=== PATIENT | male | born 1985 | race Caucasian/White ===

== ENCOUNTER 2020-10-08 15:01 | Emergency (ER) | payer OTHER ==
[2020-10-08] MEDS ORDERED: Sodium Chloride 0.9% 1,000 ML IV STA (16:24)
[2020-10-08] MEDS ORDERED: Ondansetron 4 MG/2 ML SDV IVPUSH ONE (16:24)
[2020-10-08] MEDS: Sodium Chloride 0.9% 10 ML Syringe FLUSH PRN ×2 (16:49→17:52)
[2020-10-08] MEDS ORDERED: Iopamidol 612 MG/ML 100 ML Bottle IVPUSH ONE (17:30)
[2020-10-08] MEDS ORDERED: Diatrizoate Meglumine/Diatrizoate Sodium 37% 120 ML Bottle PO ONE (17:30)
[2020-10-08] MEDS ORDERED: Iopamidol 612 MG/ML 50 ML SDV IVPUSH ONE (17:30)
--- NOTE | 2020-10-08 18:17 | CT ---
CT abdomen and pelvis Technique: Multiple axial sections were obtained from above the dome of the diaphragm inferiorly through the pubic symphysis. Intravenous and oral contrast were utilized. Delayed images were also obtained of the bladder. Reconstructed coronal and sagittal images were obtained. Comparison: No prior CT abdomen or pelvis studies are available. Findings: Visualized lung bases show nothing acute. Liver shows a very minimal low density finding within the dome of the right lobe measuring 5 mm which is most likely due to a small cyst. Liver shows no other focal abnormality. Gallbladder contains no calcified gallstones. Spleen size is normal. There is a very minimal amount of accessory splenic tissue medial to the spleen. Adrenal glands show no nodule. Pancreas appears within normal limits. Kidneys show contrast enhancement with no hydronephrosis or mass. Delayed images show contrast within the distal ureters and within the bladder. Abdominal aorta shows no aneurysm. No retroperitoneal adenopathy or mesenteric abnormalities are seen. Small fat-containing umbilical hernia is noted. Appendix is seen which is normal. No pelvic mass or adenopathy is appreciated. No inflammatory change or free fluid is seen. Mild increased stool is seen throughout the colon. Bone window settings were reviewed. Spondylitic defects are seen at L5-S1. Very minimal spondylolisthesis by 1 or 2 mm is noted at L5-S1. No other acute osseous abnormality is appreciated. Impression: 1. Mild increased stool throughout the colon presumably due to mild constipation. 2. Spondylitic defects at L5-S1 with minimal spondylolisthesis. 3. Other incidental findings as noted above. Nothing acute is seen. Diagnostic code #2
--- NOTE | 2020-10-08 18:45 | EDM.PDOC ---
ED HPI GENERAL MEDICAL PROBLEM - General Chief Complaint: Abdominal Pain Stated Complaint: ABD PAIN Time Seen by Provider: 10/08/20 15:39 Source of Information: Reports: Patient, Family, RN Notes Reviewed History Limitations: Reports: No Limitations - History of Present Illness INITIAL COMMENTS - FREE TEXT/NARRATIVE: Patient is a 34-year-old male presenting to the emergency department with complaints of right lower quadrant abdominal pain. Symptoms began around 830 this morning and have been progressively worsening throughout the course the day. He reports it is now painful for him to walk. He does feel nauseous but has had no vomiting. Denies any diarrhea. States he had a normal bowel movement this morning and the pain started shortly thereafter. He has been feel ing ill for the majority of the weekend. He had a known Covid exposure on Friday of last week. On Friday he developed sore throat, cough, headache, and generalized body aches. He was tested for Covid and was found to be negative. Reports that still has a cough but his sore throat resolved. Headache is finally resolved this morning. Patient denies any chronic medical conditions. 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 [No Known Home Meds] 10/08/20 [History] Past Medical History - Infectious Disease History Infectious Disease History: Reports: None - Past Surgical History HEENT Surgical History: Reports: Adenoidectomy, Tonsillectomy Social & Family History - Tobacco Use Tobacco Use Status *Q: Never Tobacco User - Caffeine Use Caffeine Use: Reports: Coffee, Soda - Recreational Drug Use Recreational Drug Use: No ED ROS GENERAL - Review of Systems Review Of Systems: Comprehensive ROS is negative, except as noted in HPI. ED EXAM, GI/ABD - Physical Exam Exam: See Below Exam Limited By: No Limitations General Appearance: Alert, WD/WN, No Apparent Distress Respiratory/Chest: No Respiratory Distress, Lungs Clear, Normal Breath Sounds, No Accessory Muscle Use, Chest Non-Tender Cardiovascular: Normal Peripheral Pulses, Regular Rate, Rhythm, No Edema, No Gallop, No JVD, No Murmur, No Rub GI/Abdominal Exam: Normal Bowel Sounds, Soft, No Organomegaly, No Distention, No Abnormal Bruit, No Mass, Pelvis Stable, Tender (RLQ tenderness) Neurological: Alert, Oriented, CN II-XII Intact, Normal Cognition, Normal Gait, Normal Reflexes, No Motor/Sensory Deficits Psychiatric: Normal Affect, Normal Mood Skin Exam: Warm ( ), Dry, Intact, Normal Color, No Rash Course - Vital Signs Last Recorded V/S: Last Vital Signs Temp 98.0 F 10/08/20 15:48 Pulse 72 10/08/20 15:48 Resp 20 10/08/20 15:48 BP 123/91 H 10/08/20 15:48 Pulse Ox 96 10/08/20 15:48 - Orders/Labs/Meds Orders: Active Orders 24 hr Category Date Time Status Peripheral IV Care [RC] . DIRECTED Care 10/08/20 16:24 Active Sodium Chloride 0.9% [Normal Saline] 1,000 ml Med 10/08/20 16:24 Active IV NOW Sodium Chloride 0.9% [Saline Flush] Med 10/08/20 16:24 Active 10 ml FLUSH ASDIRECTED PRN Peripheral IV Insertion Adult [OM.PC] Stat Oth 10/08/20 16:23 Ordered Medication Orders Sodium Chloride (Normal Saline) 1,000 mls @ 150 mls/hr IV NOW STA Stop: 10/08/20 23:03 Last Admin: 10/08/20 16:49 Dose: 150 mls/hr Documented by: BREONNA Sodium Chloride (Sodium Chloride 0.9% 10 Ml Syringe) 10 ml FLUSH ASDIRECTED PRN PRN Reason: Keep Vein Open Last Admin: 10/08/20 17:52 Dose: 10 ml Documented by: Admin: 10/08/20 16:49 Dose: 10 ml Documented by: BREONNA Labs: Laboratory Tests 10/08/20 10/08/20 10/08/20 Range/Units 16:42 16:42 16:42 WBC 4.56 (4.23-9.07) K/mm3 RBC 5.55 (4.63-6.08) M/mm3 Hgb 16.7 (13.7-17.5) gm/dl Hct 49.3 (40.1-51.0) % MCV 88.8 (79.0-92.2) fl MCH 30.1 (25.7-32.2) pg MCHC 33.9 (32.2-35.5) g/dl RDW Std Deviation 43.0 (35.1-43.9) fL Plt Count 151 L (163-337) K/mm3 MPV 10.8 (9.4-12.3) fl Neut % (Auto) 41.1 (34.0-67.9) % Lymph % (Auto) 34.4 (21.8-53.1) % Leake % (Auto) 23.7 H (5.3-12.2) % Eos % (Auto) 0.4 L (0.8-7.0) Baso % (Auto) 0.2 (0.1-1.2) % Neut # (Auto) 1.87 (1.78-5.38) K/mm3 Lymph # (Auto) 1.57 (1.32-3.57) K/mm3 Leake # (Auto) 1.08 H (0.30-0.82) K/mm3 Eos # (Auto) 0.02 L (0.04-0.54) K/mm3 Baso # (Auto) 0.01 (0.01-0.08) K/mm3 Manual Slide Review Abnormal smear Sodium 141 (136-145) mEq/L Potassium 3.8 (3.5-5.1) mEq/L Chloride 105 (98-107) mEq/L Carbon Dioxide 28 (21-32) mEq/L Anion Gap 11.8 (5-15) BUN 16 (7-18) mg/dL Creatinine 1.2 (0.7-1.3) mg/dL Est Cr Clr Drug Dosing 82.33 mL/min Estimated GFR (MDRD) > 60 (>60) mL/min BUN/Creatinine Ratio 13.3 L (14-18) Glucose 84 (70-99) mg/dL Calcium 8.6 (8.5-10.1) mg/dL Total Bilirubin 0.7 (0.2-1.0) mg/dL AST 22 (15-37) U/L ALT 39 (16-63) U/L Alkaline Phosphatase 75 (46-116) U/L C-Reactive Protein 1.8 H* (<1.0) mg/dL Total Protein 7.4 (6.4-8.2) g/dl Albumin 3.7 (3.4-5.0) g/dl Globulin 3.7 gm/dL Albumin/Globulin Ratio 1.0 (1-2) Urine Color (Yellow) Urine Appearance (Clear) Urine pH (5.0-8.0) Ur Specific [place] (1.005-1.030) Urine Protein (Negative) Urine Glucose (UA) (Negative) Urine Ketones (Negative) Urine Occult Blood (Negative) Urine Nitrite (Negative) Urine Bilirubin (Negative) Urine Urobilinogen (0.2-1.0) Ur Leukocyte Esterase (Negative) Urine RBC (0-5) /hpf Urine WBC (0-5) /hpf Ur Epithelial Cells (0-5) /hpf Urine Bacteria (FEW) /hpf Urine Mucus (FEW) /hpf SARS-CoV-2 RNA (AL) Positive H (NEGATIVE) 10/08/20 Range/Units 18:08 WBC (4.23-9.07) K/mm3 RBC (4.63-6.08) M/mm3 Hgb (13.7-17.5) gm/dl Hct (40.1-51.0) % MCV (79.0-92.2) fl MCH (25.7-32.2) pg MCHC (32.2-35.5) g/dl RDW Std Deviation (35.1-43.9) fL Plt Count (163-337) K/mm3 MPV (9.4-12.3) fl Neut % (Auto) (34.0-67.9) % Lymph % (Auto) (21.8-53.1) % Leake % (Auto) (5.3-12.2) % Eos % (Auto) (0.8-7.0) Baso % (Auto) (0.1-1.2) % Neut # (Auto) (1.78-5.38) K/mm3 Lymph # (Auto) (1.32-3.57) K/mm3 Leake # (Auto) (0.30-0.82) K/mm3 Eos # (Auto) (0.04-0.54) K/mm3 Baso # (Auto) (0.01-0.08) K/mm3 Manual Slide Review Sodium (136-145) mEq/L Potassium (3.5-5.1) mEq/L Chloride (98-107) mEq/L Carbon Dioxide (21-32) mEq/L Anion Gap (5-15) BUN (7-18) mg/dL Creatinine (0.7-1.3) mg/dL Est Cr Clr Drug Dosing mL/min Estimated GFR (MDRD) (>60) mL/min BUN/Creatinine Ratio (14-18) Glucose (70-99) mg/dL Calcium (8.5-10.1) mg/dL Total Bilirubin (0.2-1.0) mg/dL AST (15-37) U/L ALT (16-63) U/L Alkaline Phosphatase (46-116) U/L C-Reactive Protein (<1.0) mg/dL Total Protein (6.4-8.2) g/dl Albumin (3.4-5.0) g/dl Globulin gm/dL Albumin/Globulin Ratio (1-2) Urine Color Yellow (Yellow) Urine Appearance Clear (Clear) Urine pH 6.0 (5.0-8.0) Ur Specific [place] 1.015 (1.005-1.030) Urine Protein Negative (Negative) Urine Glucose (UA) Negative (Negative) Urine Ketones Negative (Negative) Urine Occult Blood Negative (Negative) Urine Nitrite Negative (Negative) Urine Bilirubin Negative (Negative) Urine Urobilinogen 0.2 (0.2-1.0) Ur Leukocyte Esterase Negative (Negative) Urine RBC 0-5 (0-5) /hpf Urine WBC 0-5 (0-5) /hpf Ur Epithelial Cells 0-5 (0-5) /hpf Urine Bacteria Rare (FEW) /hpf Urine Mucus Rare (FEW) /hpf SARS-CoV-2 RNA (AL) (NEGATIVE) Meds: Medications Generic Name Dose Route Start Last Admin Trade Name Freq PRN Reason Stop Dose Admin Sodium Chloride 1,000 mls @ 150 mls/hr 10/08/20 16:24 10/08/20 16:49 Normal Saline IV 10/08/20 23:03 150 mls/hr NOW STA Administration Sodium Chloride 10 ml 10/08/20 16:24 10/08/20 17:52 Sodium Chloride 0.9% 10 Ml Syringe FLUSH 10 ml ASDIRECTED PRN Administration Keep Vein Open Discontinued Medications Generic Name Dose Route Start Last Admin Trade Name Freq PRN Reason Stop Dose Admin Diatrizoate Meglum/Diatrizoate Sod 45 ml 10/08/20 17:30 10/08/20 17:52 Diatrizoate Meglumine/Diatrizoate Sodium 37% 120 Ml Bottle PO 10/08/20 17:31 45 ml ONETIME ONE Administration Iopamidol 100 ml 10/08/20 17:30 10/08/20 17:52 Iopamidol 612 Mg/Ml 100 Ml Bottle IVPUSH 10/08/20 17:31 100 ml ONETIME ONE Administration Iopamidol 30 ml 10/08/20 17:30 10/08/20 17:52 Iopamidol 612 Mg/Ml 50 Ml Sdv IVPUSH 10/08/20 17:31 30 ml ONETIME ONE Administration Ondansetron HCl 4 mg 10/08/20 16:24 10/08/20 16:49 Ondansetron 4 Mg/2 Ml Sdv IVPUSH 10/08/20 16:25 4 mg ONETIME ONE Administration - Re-Assessments/Exams Free Text/Narrative Re-Assessment/Exam: Patient is a 34-year-old male presenting to the emergency department with complaints of right lower quadrant abdominal pain that began this morning has been progressively worsening throughout the day. He is also had known Covid exposure with Covid symptoms throughout the weekend. On exam, patient does have localized right lower quadrant abdominal tenderness. There is no rebound tenderness or guarding. I have ordered blood work, Covid test, CT scan of the abdomen pelvis, IV fluids, and Zofran. 10/08/20 18:46 Hematology is grossly unremarkable. Urinalysis is unremarkable. Patient is Covid positive. CT scan shows increased stool throughout the colon consistent with mild constipation but is otherwise normal. Results discussed with patient. Recommend [id number] MiraLAX for constipation as well as symptomatic care for Covid symptoms. Discussed return precautions. Discharge instructions as documented. Departure - Departure Time of Disposition: 18:46 Disposition: Home, Self-Care 01 Condition: Good Clinical Impression: COVID-19 Constipation Qualifiers: Constipation type: unspecified constipation type Qualified Code(s): K59.00 - Constipation, unspecified - Discharge Information *PRESCRIPTION DRUG MONITORING PROGRAM REVIEWED*: No *COPY OF PRESCRIPTION DRUG MONITORING REPORT IN PATIENT JULIO: No Instructions: COVID-19 Frequently Asked Questions, COVID-19, Constipation, Adult Referrals: Junior Ortega MD [Primary Care Provider] - Forms: ED Department Discharge Additional Instructions: You were seen in the emergency department today for right lower quadrant abdominal pain as well as Covid symptoms over the weekend. Work-up included blood work, urinalysis, Covid test, and a CT scan of your abdomen pelvis. Results of your work-up show that you are unfortunately positive for Covid. CT scan of the abdomen and pelvis showed constipation but no evidence of appendicitis or any other abnormalities. Recommend that you continue Tylenol or ibuprofen as needed for headache and discomfort. I would use MiraLAX 1-2 capfuls daily until you achieve a regular bowel pattern. You'll be contacted by the [facility]. Follow the recommendation with regards to isolation. If you should experience any worsening symptoms, please not hesitate to return for reevaluation. Sepsis Event Note (ED) - Evaluation Sepsis Screening Result: No Definite Risk - Focused Exam Vital Signs: Vital Signs Temp Pulse Resp BP Pulse Ox 10/08/20 15:48 98.0 F 72 20 123/91 H 96 - My Orders Last 24 Hours: My Active Orders 10/08/20 16:23 Peripheral IV Insertion Adult [OM.PC] Stat 10/08/20 16:24 Peripheral IV Care [RC] . DIRECTED Sodium Chloride 0.9% [Normal Saline] 1,000 ml IV NOW Sodium Chloride 0.9% [Saline Flush] 10 ml FLUSH ASDIRECTED PRN - Assessment/Plan Last 24 Hours: My Active Orders 10/08/20 16:23 Peripheral IV Insertion Adult [OM.PC] Stat 10/08/20 16:24 Peripheral IV Care [RC] . DIRECTED Sodium Chloride 0.9% [Normal Saline] 1,000 ml IV NOW Sodium Chloride 0.9% [Saline Flush] 10 ml FLUSH ASDIRECTED PRN
== END 2020-10-08 19:37 | disposition home or self-care (01) ==
LOC: JD.ED 15:01
DX: U07.1 COVID-19 (principal); K59.00 Constipation, unspecified
CPT/HCPCS: 36415; 74177; 80053; 81001; 85025; 86140; 87635; 96374; 99284; J2405; J7030; Q9963; Q9967; U0002